=== PATIENT | male | born 1935 | race Caucasian/White ===

== ENCOUNTER 2021-06-17 21:52 | Inpatient (IN) | payer MEDICARE ==
[~2021-06-17 21:52] MED LIST: Iopamidol-370 76% 500 ML 1 ML ONE
[2021-06-17] MEDS ORDERED: Ondansetron PF 4 MG/2 ML Vial ONE (22:19)
[2021-06-17 22:36] LABS: #Lymphocytes 0.5 thou/uL (1.20-3.40); #Monocytes 0.6 thou/uL (0.11-0.59); #Neutrophils 13.6 thou/uL (1.40-6.50); %Basophils 0.2 % (0.0-1.0); %Eosinophils 0.1 % (0.0-10.0); %Lymphocytes 3.3 % (21.0-51.0); %Monocytes 3.8 % (0.0-10.0); %Neutrophils 92.7 % (42.0-75.0); Hemoglobin 14.3 g/dL (14.0-18.0); Mean Corpuscular HGB CONC 33.6 g/dL (32.0-36.0); Mean Corpuscular Hemoglobin 32.3 pg (27.0-31.0); Mean Platelet Volume 7.5 fL (7.4-10.4); Platelet Count 184 thou/uL (130-400); RBC Distribution Width 12.8 % (11.5-14.5); Red Blood Cell (RBC) Count 4.43 mill/uL (4.70-6.10); White Blood Cell (WBC) Count 14.7 thou/uL (4.8-10.8)
[2021-06-17 22:58] LABS: ALT (SGPT) 416 U/L (8-55); AST (SGOT) 848 U/L (5-34); Albumin 3.9 g/dL (3.4-4.8); Alkaline Phosphatase 172 U/L (40-110); Anion Gap 21 mmol/L (10-20); BUN (Urea Nitrogen) 17 mg/dL (8.4-25.7); Bilirubin, Total 3.3 mg/dL (0.2-1.2); CK (CPK) 225 U/L (30-200); Calc. Creatinine Clearance 0 mL/min (70-130); Calcium 9.6 mg/dL (7.8-10.44); Carbon Dioxide 19 mmol/L (23-31); Chloride 102 mmol/L (98-107); Globulin 3.7 g/dL (2.4-3.5); Glucose 255 mg/dL (83-110); Lipase 74 U/L (8-78); Magnesium 1.3 mg/dL (1.6-2.6); Potassium 4.7 mmol/L (3.5-5.1); Protein, Total 7.6 g/dL (5.8-8.1); Sodium 137 mmol/L (136-145)
[2021-06-18] MEDS ORDERED: Magnesium 2 GM/50 ML BAG (IN WATER) ONE ×2 (00:07→07:17)
[2021-06-18] MEDS ORDERED: Ondansetron PF 4 MG/2 ML Vial ONE (00:07)
[2021-06-18] MEDS ORDERED: Vancomycin 1 GM/200 ML BAG ONE (00:07)
[2021-06-18] MEDS ORDERED: Cefepime 2 GM VIAL ONE (00:07)
[2021-06-18 01:40] LABS: Lactic Acid 1.7 mmol/L (0.5-2.2)
[2021-06-18] MEDS ORDERED: Acetaminophen 650 MG Suppository PR PRN (02:53)
[2021-06-18] MEDS ORDERED: Ondansetron ODT 4 MG TAB PO PRN (02:53)
[2021-06-18] MEDS ORDERED: Ondansetron PF 4 MG/2 ML Vial IVP PRN (02:53)
[2021-06-18] MEDS ORDERED: Acetaminophen 325 MG TAB PO PRN (02:53)
[2021-06-18] MEDS ORDERED: Piperacillin/Tazobactam 3.375 GM VIAL ONE ×2 (02:57→12:11)
[2021-06-18] MEDS ORDERED: Electrolyte Replacement Protocol 1 EACH FS SCH (03:00)
[2021-06-18 03:09] VITALS: BMI 26.6
[2021-06-18] MEDS ORDERED: Dextrose 50% Abboject 50 ML SYRINGE SLOW IVP PRN (04:13)
[2021-06-18] MEDS ORDERED: Dextrose 5% in Water 1,000 ML IV PRN (04:13)
[2021-06-18] MEDS ORDERED: HumaLOG 300 UNITS/3 ML VIAL SC PRN (04:13)
[2021-06-18] MEDS ORDERED: Enoxaparin Sodium 80 MG/0.8 ML SYRINGE SC SCH ×2 (04:30→21:00)
[2021-06-18] MEDS: Sodium Chloride 0.9% 1,000 ML IV SCH ×3 (04:37→17:17)
[2021-06-18] MEDS ORDERED: Enoxaparin Sodium 80 MG/0.8 ML SYRINGE ONE (04:39)
[2021-06-18] MEDS ORDERED: Doxycycline 100 MG in Sodium Chloride 0.9% 100 ML IVPB SCH (06:00)
[2021-06-18 06:45] LABS: Anion Gap 14 mmol/L (10-20); BUN (Urea Nitrogen) 19 mg/dL (8.4-25.7); Calc. Creatinine Clearance 36 mL/min (70-130); Calcium 8.7 mg/dL (7.8-10.44); Carbon Dioxide 20 mmol/L (23-31); Chloride 104 mmol/L (98-107); Glucose 281 mg/dL (83-110); Magnesium 1.7 mg/dL (1.6-2.6); Potassium 4.3 mmol/L (3.5-5.1); Sodium 134 mmol/L (136-145); Troponin I 4.855 ng/mL (< 0.028)
[2021-06-18 06:47] LABS: Band 42 % (5-11); Hemoglobin 12.6 g/dL (14.0-18.0); Lymphocytes 3 % (21-51); MDiff Complete? YES; Mean Corpuscular HGB CONC 34.1 g/dL (32.0-36.0); Mean Corpuscular Hemoglobin 33.1 pg (27.0-31.0); Mean Corpuscular Volume 97.2 fL (78.0-98.0); Mean Platelet Volume 7.5 fL (7.4-10.4); Monocytes 2 % (0-10); Neutrophil 53 % (42-75); Platelet Count 163 thou/uL (130-400); RBC Distribution Width 12.9 % (11.5-14.5); Red Blood Cell (RBC) Count 3.81 mill/uL (4.70-6.10); White Blood Cell (WBC) Count 16.7 thou/uL (4.8-10.8)
[2021-06-18] MEDS ORDERED: Magnesium 2 GM/50 ML(in water) 2 GM in Premix Bag 1 BAG IVPB SCH (07:15)
[2021-06-18 07:56] LABS: ALT (SGPT) 601 U/L (8-55); AST (SGOT) 1083 U/L (5-34); Albumin 3.3 g/dL (3.4-4.8); Alkaline Phosphatase 142 U/L (40-110); Bilirubin, Direct 2.2 mg/dL (0.1-0.3); Bilirubin, Total 3.9 mg/dL (0.2-1.2); Protein, Total 6.4 g/dL (5.8-8.1)
[2021-06-18] MEDS ORDERED: Enoxaparin Sodium 40 MG/0.4 ML SYRINGE SC SCH (09:00)
[2021-06-18 10:26] LABS: Bacteria/HPF None Seen HPF (None Seen); Bilirubin Negative (Negative); Blood, Urine 1+ (Negative); Clarity Clear (Clear); Glucose, Urine (Dipstick) 50 mg/dL (Negative); Ketone, Urine 20 mg/dL (Negative); Leukocyte Negative Leu/uL (Negative); Nitrite Negative (Negative); Protein, Urine (Dipstick) 200 mg/dL (Neg-Trace); RBC/HPF 0-3 HPF (0-3); Specific Gravity, Urine 1.026 (1.002-1.036); Squamous Epithelial None Seen HPF (0-3); Urobilinogen Normal mg/dL (Less than 2); WBC/HPF 0-3 HPF (0-3); pH, Urine 5.5 (5.0-9.0)
[2021-06-18 11:15] LABS: Amphetamine Not Detected (NotDetected); Barbiturates Screen Not Detected (NotDetected); Benzodiazepine Screen Not Detected (NotDetected); Cocaine Metabolite Screen Not Detected (NotDetected); Methadone Not Detected (NotDetected); Methamphetamine Not Detected (NotDetected); Opiate Screen Not Detected (NotDetected); Oxycodone Screen Not Detected (NotDetected); Phencyclidine (PCP) Not Detected (NotDetected); THC/Cannabinoid Screen Not Detected (NotDetected); Tricyclic Screen Not Detected (NotDetected)
[2021-06-18 11:23] LABS: INR-International Normal Ratio 1.2; Prothrombin Time 15.7 sec (12.0-14.7)
[2021-06-18 11:24] LABS: PTT 41.5 sec (22.9-36.1)
[2021-06-18 11:30] LABS: Acetaminophen Less than 6.0 mcg/mL (10.0-30.0); Salicylate Less than 8.0 mg/dL (15.0-30.0)
[2021-06-18 11:51] LABS: HBCM Index 0.06 S/CO (0-0.79); HBSAg Index 0.27 S/CO (0-0.99); Hep A IgM AB Non-Reactive (NonReactive); Hep A IgM S/CO 0.48 S/CO (0-0.79); Hep B Surf Ag Non-Reactive S/CO (NonReactive); Hep C IgG Ab Non-Reactive (NonReactive); Hep C Index 0.13 S/CO (0-0.79); Hepatitis B Core IgM Abs Non-Reactive (NonReactive)
[2021-06-18] MEDS: Piperacillin/Tazobactam 3.375 GM in Sodium Chloride 0.9% 100 ML IVPB SCH ×2 (12:25→20:57)
[2021-06-18 13:46] LABS: SARS-CoV-2 PCR by NAA Not Detected (NotDetected)
[2021-06-18] MEDS: Doxycycline 100 MG in Sodium Chloride 0.9% 100 ML IVPB SCH (17:16)
[2021-06-19] MEDS: Piperacillin/Tazobactam 3.375 GM in Sodium Chloride 0.9% 100 ML IVPB SCH ×3 (04:34→20:44)
[2021-06-19 04:42] LABS: #Eosinphils 0.1 thou/uL (0.0-0.7); #Lymphocytes 0.3 thou/uL (1.20-3.40); #Monocytes 0.4 thou/uL (0.11-0.59); #Neutrophils 6.5 thou/uL (1.40-6.50); %Basophils 0.7 % (0.0-1.0); %Eosinophils 0.9 % (0.0-10.0); %Lymphocytes 4.6 % (21.0-51.0); %Monocytes 5.3 % (0.0-10.0); %Neutrophils 88.5 % (42.0-75.0); Hemoglobin 11.5 g/dL (14.0-18.0); Mean Corpuscular HGB CONC 33.3 g/dL (32.0-36.0); Mean Corpuscular Hemoglobin 32.7 pg (27.0-31.0); Mean Corpuscular Volume 98.2 fL (78.0-98.0); Mean Platelet Volume 7.6 fL (7.4-10.4); Platelet Count 130 thou/uL (130-400); RBC Distribution Width 13.3 % (11.5-14.5); Red Blood Cell (RBC) Count 3.51 mill/uL (4.70-6.10); White Blood Cell (WBC) Count 7.4 thou/uL (4.8-10.8)
[2021-06-19 05:08] LABS: ALT (SGPT) 498 U/L (8-55); AST (SGOT) 446 U/L (5-34); Albumin 3.2 g/dL (3.4-4.8); Alkaline Phosphatase 127 U/L (40-110); Anion Gap 11 mmol/L (10-20); BUN (Urea Nitrogen) 17 mg/dL (8.4-25.7); Bilirubin, Total 4.3 mg/dL (0.2-1.2); Calc. Creatinine Clearance 38 mL/min (70-130); Calcium 8.5 mg/dL (7.8-10.44); Carbon Dioxide 23 mmol/L (23-31); Chloride 106 mmol/L (98-107); Globulin 3.2 g/dL (2.4-3.5); Glucose 179 mg/dL (83-110); Potassium 4.2 mmol/L (3.5-5.1); Protein, Total 6.4 g/dL (5.8-8.1); Sodium 136 mmol/L (136-145)
[2021-06-19 05:10] LABS: INR-International Normal Ratio 1.1; Prothrombin Time 14.3 sec (12.0-14.7)
[2021-06-19 05:11] LABS: PTT 35.1 sec (22.9-36.1)
[2021-06-19] MEDS: Sodium Chloride 0.9% 1,000 ML IV SCH ×2 (06:32→13:15)
[2021-06-19] MEDS: Doxycycline 100 MG in Sodium Chloride 0.9% 100 ML IVPB SCH ×2 (06:32→20:34)
[2021-06-19] MEDS ORDERED: FLU VACC QS2021-22(65YR UP)/PF 240 MCG/0.7 ML SYRINGE IM ONE (09:00)
[2021-06-19] MEDS: HumaLOG 300 UNITS/3 ML VIAL SC PRN (13:25)
[2021-06-19] MEDS ORDERED: hydrALAZINE 20 MG/ML VIAL SLOW IVP PRN (23:50)
[2021-06-20] MEDS: Piperacillin/Tazobactam 3.375 GM in Sodium Chloride 0.9% 100 ML IVPB SCH (05:25)
[2021-06-20] MEDS: Sodium Chloride 0.9% 1,000 ML IV SCH ×2 (05:26→06:14)
[2021-06-20] MEDS: Doxycycline 100 MG in Sodium Chloride 0.9% 100 ML IVPB SCH (05:27)
[2021-06-20] MEDS: HumaLOG 300 UNITS/3 ML VIAL SC PRN ×3 (05:37→18:43)
[2021-06-20 05:38] LABS: #Eosinphils 0.1 thou/uL (0.0-0.7); #Lymphocytes 0.5 thou/uL (1.20-3.40); #Monocytes 0.3 thou/uL (0.11-0.59); #Neutrophils 5.8 thou/uL (1.40-6.50); %Basophils 0.3 % (0.0-1.0); %Eosinophils 0.8 % (0.0-10.0); %Lymphocytes 7.5 % (21.0-51.0); %Monocytes 4.5 % (0.0-10.0); %Neutrophils 86.9 % (42.0-75.0); Mean Corpuscular HGB CONC 33.8 g/dL (32.0-36.0); Mean Corpuscular Hemoglobin 32.7 pg (27.0-31.0); Mean Corpuscular Volume 96.8 fL (78.0-98.0); Mean Platelet Volume 8.2 fL (7.4-10.4); Platelet Count 112 thou/uL (130-400); RBC Distribution Width 13.1 % (11.5-14.5); Red Blood Cell (RBC) Count 3.66 mill/uL (4.70-6.10); White Blood Cell (WBC) Count 6.7 thou/uL (4.8-10.8)
[2021-06-20 05:45] LABS: Prothrombin Time 13.5 sec (12.0-14.7)
[2021-06-20 05:46] LABS: PTT 31.5 sec (22.9-36.1)
[2021-06-20] MEDS ORDERED: cefTRIAXone\\ROCEPHIN 1 GM in Sodium Chloride 0.9% 100 ML IVPB SCH (09:00)
[2021-06-20] MEDS ORDERED: Sodium Chloride 0.9% 1,000 ML IV SCH (09:01)
[2021-06-20] MEDS ORDERED: Fleet Enema 133 ML BOT PR SCH (09:15)
[2021-06-20] MEDS: Metoprolol Tartrate 100 MG TAB PO SCH (10:03)
[2021-06-20] MEDS: Alogliptin 6.25 MG TAB PO SCH (10:10)
[2021-06-20] MEDS: Tamsulosin HCl 0.4 MG CAP PO SCH (10:10)
[2021-06-20] MEDS: Amlodipine 5 MG TAB PO SCH (10:10)
[2021-06-20] MEDS: Finasteride 5 MG TAB PO SCH (10:11)
[2021-06-20 14:39] LABS: Albumin 3.2 g/dL (3.4-4.8)
[2021-06-20 14:40] LABS: Chloride 104 mmol/L (98-107); Potassium 4.2 mmol/L (3.5-5.1); Sodium 133 mmol/L (136-145)
[2021-06-20 14:41] LABS: Calcium 8.7 mg/dL (7.8-10.44); Glucose 209 mg/dL (83-110)
[2021-06-20 14:42] LABS: Globulin 3.4 g/dL (2.4-3.5); Protein, Total 6.6 g/dL (5.8-8.1)
[2021-06-20 14:43] LABS: Anion Gap 15 mmol/L (10-20); Bilirubin, Total 4.1 mg/dL (0.2-1.2); Carbon Dioxide 18 mmol/L (23-31)
[2021-06-20 14:44] LABS: Alkaline Phosphatase 144 U/L (40-110)
[2021-06-20 14:45] LABS: Calc. Creatinine Clearance 60 mL/min (70-130)
[2021-06-20 14:46] LABS: BUN (Urea Nitrogen) 12 mg/dL (8.4-25.7)
[2021-06-20 14:47] LABS: ALT (SGPT) 446 U/L (8-55); AST (SGOT) 354 U/L (5-34)
[2021-06-20] MEDS: Atorvastatin Calcium 10 MG TAB PO SCH (21:30)
[2021-06-21] MEDS: HumaLOG 300 UNITS/3 ML VIAL SC PRN ×2 (06:08→12:07)
[2021-06-21 07:02] LABS: Hemoglobin 11.9 g/dL (14.0-18.0); Mean Corpuscular HGB CONC 32.7 g/dL (32.0-36.0); Mean Corpuscular Hemoglobin 32.3 pg (27.0-31.0); Mean Corpuscular Volume 98.9 fL (78.0-98.0); Mean Platelet Volume 9.3 fL (7.4-10.4); Platelet Count 138 thou/uL (130-400); RBC Distribution Width 13.3 % (11.5-14.5); Red Blood Cell (RBC) Count 3.67 mill/uL (4.70-6.10); White Blood Cell (WBC) Count 5.3 thou/uL (4.8-10.8)
[2021-06-21 07:14] LABS: PTT 32.9 sec (22.9-36.1); Prothrombin Time 13.7 sec (12.0-14.7)
[2021-06-21 07:17] LABS: ALT (SGPT) 395 U/L (8-55); ALT (SGPT) 404 U/L (8-55); AST (SGOT) 283 U/L (5-34); AST (SGOT) 288 U/L (5-34); Albumin 3.1 g/dL (3.4-4.8); Albumin 3.2 g/dL (3.4-4.8); Alkaline Phosphatase 155 U/L (40-110); Alkaline Phosphatase 156 U/L (40-110); Anion Gap 15 mmol/L (10-20); BUN (Urea Nitrogen) 14 mg/dL (8.4-25.7); Bilirubin, Direct 2.4 mg/dL (0.1-0.3); Bilirubin, Total 3.5 mg/dL (0.2-1.2); Calc. Creatinine Clearance 59 mL/min (70-130); Calcium 8.8 mg/dL (7.8-10.44); Carbon Dioxide 21 mmol/L (23-31); Chloride 102 mmol/L (98-107); Globulin 3.4 g/dL (2.4-3.5); Glucose 182 mg/dL (83-110); Potassium 4.1 mmol/L (3.5-5.1); Protein, Total 6.5 g/dL (5.8-8.1); Protein, Total 6.6 g/dL (5.8-8.1); Sodium 134 mmol/L (136-145)
[2021-06-21 08:35] LABS: Band 26 % (5-11); Eosinophils 2 % (0-10); Lymphocytes 9 % (21-51); MDiff Complete? YES; Monocytes 10 % (0-10); Neutrophil 53 % (42-75); RBC Morphology Normal
[2021-06-21] MEDS: Amlodipine 5 MG TAB PO SCH (09:00)
[2021-06-21] MEDS: Alogliptin 6.25 MG TAB PO SCH (09:00)
[2021-06-21] MEDS: Metoprolol Tartrate 100 MG TAB PO SCH (09:00)
[2021-06-21] MEDS: Finasteride 5 MG TAB PO SCH (09:00)
[2021-06-21] MEDS: Tamsulosin HCl 0.4 MG CAP PO SCH (09:00)
[2021-06-21] MEDS: Atorvastatin Calcium 10 MG TAB PO SCH (21:57)
[2021-06-22 04:39] LABS: #Eosinphils 0.2 thou/uL (0.0-0.7); #Lymphocytes 1.1 thou/uL (1.20-3.40); #Monocytes 0.7 thou/uL (0.11-0.59); #Neutrophils 3.6 thou/uL (1.40-6.50); %Basophils 0.5 % (0.0-1.0); %Eosinophils 3.4 % (0.0-10.0); %Lymphocytes 19.6 % (21.0-51.0); %Monocytes 11.7 % (0.0-10.0); %Neutrophils 64.7 % (42.0-75.0); Hemoglobin 13.1 g/dL (14.0-18.0); Mean Corpuscular HGB CONC 33.5 g/dL (32.0-36.0); Mean Corpuscular Hemoglobin 32.8 pg (27.0-31.0); Platelet Count 142 thou/uL (130-400); RBC Distribution Width 13.4 % (11.5-14.5); Red Blood Cell (RBC) Count 3.98 mill/uL (4.70-6.10); White Blood Cell (WBC) Count 5.6 thou/uL (4.8-10.8)
[2021-06-22] MEDS ORDERED: Loratadine 10 MG TAB PO SCH (04:45)
[2021-06-22 05:03] LABS: Anion Gap 14 mmol/L (10-20); BUN (Urea Nitrogen) 15 mg/dL (8.4-25.7); Calc. Creatinine Clearance 56 mL/min (70-130); Calcium 9.2 mg/dL (7.8-10.44); Carbon Dioxide 23 mmol/L (23-31); Chloride 102 mmol/L (98-107); Glucose 214 mg/dL (83-110); Potassium 3.7 mmol/L (3.5-5.1); Sodium 135 mmol/L (136-145)
[2021-06-22 05:04] LABS: ALT (SGPT) 376 U/L (8-55); AST (SGOT) 236 U/L (5-34); Albumin 3.3 g/dL (3.4-4.8); Alkaline Phosphatase 184 U/L (40-110); Bilirubin, Direct 2.1 mg/dL (0.1-0.3)
[2021-06-22] MEDS: HumaLOG 300 UNITS/3 ML VIAL SC PRN ×3 (06:30→18:17)
[2021-06-22] MEDS: Alogliptin 6.25 MG TAB PO SCH (07:50)
[2021-06-22] MEDS: Tamsulosin HCl 0.4 MG CAP PO SCH (07:50)
[2021-06-22] MEDS: Metoprolol Tartrate 100 MG TAB PO SCH (07:50)
[2021-06-22] MEDS: Finasteride 5 MG TAB PO SCH (07:50)
[2021-06-22] MEDS: Amlodipine 5 MG TAB PO SCH (07:50)
[2021-06-22] MEDS: Atorvastatin Calcium 10 MG TAB PO SCH (21:26)
[2021-06-23] MEDS ORDERED: Loratadine 10 MG TAB PO PRN (00:08)
[2021-06-23] MEDS ORDERED: Calcium Carbonate 500 MG ChewTAB PO PRN (00:09)
[2021-06-23 05:38] LABS: ALT (SGPT) 314 U/L (8-55); AST (SGOT) 195 U/L (5-34); Alkaline Phosphatase 180 U/L (40-110); Bilirubin, Direct 1.7 mg/dL (0.1-0.3); Bilirubin, Total 2.6 mg/dL (0.2-1.2); Protein, Total 6.3 g/dL (5.8-8.1)
[2021-06-23] MEDS: HumaLOG 300 UNITS/3 ML VIAL SC PRN ×2 (05:52→11:23)
[2021-06-23] MEDS: Alogliptin 6.25 MG TAB PO SCH (09:33)
[2021-06-23] MEDS: Metoprolol Tartrate 100 MG TAB PO SCH (09:34)
[2021-06-23] MEDS: Tamsulosin HCl 0.4 MG CAP PO SCH (09:34)
[2021-06-23] MEDS: Amlodipine 5 MG TAB PO SCH (09:35)
[2021-06-23] MEDS: Finasteride 5 MG TAB PO SCH (09:35)
[2021-06-23 10:19] VITALS: TEMP 97.8
[2021-06-23 12:44] VITALS: BP 155/68
[2021-06-25 15:14] LABS: Alpha-1-Antitrypsin 174 mg/dL (101-187); Smooth Muscle Total ABS 9 Units (0-19)
[2021-06-27 14:55] LABS: ANA Symphony (Qualitative) Negative (Negative); ANA Symphony (Quantitative) 0.4 Ratio (< 0.7 Negative); EliA Vaculitis New Method **** NEW METHOD ****; Mitochondrial Ab 1.4 U/mL (<4 Negative)
== END 2021-06-23 14:54 | disposition home or self-care (01) | DRG 871 ==
LOC: ERS 21:52 → ERHOLD 06-18 00:18 → 2NO 06-18 14:44
PROVIDERS: ADMIT Student in an Organized Health Care Education/Training Program; ATTEND Internal Medicine
DX: A41.51 Sepsis due to Escherichia coli [E. coli] (principal); J18.9 Pneumonia, unspecified organism; I21.A1 Myocardial infarction type 2; K72.00 Acute and subacute hepatic failure without coma; N17.9 Acute kidney failure, unspecified; I42.9 Cardiomyopathy, unspecified; E87.1 Hypo-osmolality and hyponatremia; K55.8 Other vascular disorders of intestine; Z20.822 Contact with and (suspected) exposure to COVID-19; R65.20 Severe sepsis without septic shock; K52.89 Other specified noninfective gastroenteritis and colitis; E88.09 Other disorders of plasma-protein metabolism, not elsewhere classified; E83.42 Hypomagnesemia; K76.0 Fatty (change of) liver, not elsewhere classified; E11.9 Type 2 diabetes mellitus without complications; I10 Essential (primary) hypertension; I25.10 Atherosclerotic heart disease of native coronary artery without angina pectoris; R74.01 Elevation of levels of liver transaminase levels; E80.6 Other disorders of bilirubin metabolism; M06.9 Rheumatoid arthritis, unspecified; I08.1 Rheumatic disorders of both mitral and tricuspid valves; M19.90 Unspecified osteoarthritis, unspecified site; K21.9 Gastro-esophageal reflux disease without esophagitis; Z28.21 Immunization not carried out because of patient refusal; Z95.1 Presence of aortocoronary bypass graft; Z79.899 Other long term (current) drug therapy; Z79.84 Long term (current) use of oral hypoglycemic drugs; Z80.8 Family history of malignant neoplasm of other organs or systems
CPT/HCPCS: 36415; 36416; 71045; 74177; 76705; 76770; 80048; 80053; 80074; 80076; 80143; 80179; 80306; 81001; 82103; 82104; 82105; 82390; 82550; 82553; 82728; 83516; 83550; 83605; 83690; 83735; 84145; 84443; 84484; 85025; 85610; 85730; 86038; 86225; 87040; 87077; 87086; 87149; 87186; 93005; 93306; 96365; 96366; 96368; 96375; 80307; J0692; J0696; J1650; J1815; J2405; J2543; J3370; J3475; J3490; J7050; Q9967; U0003; U0005

== ENCOUNTER 2021-06-26 19:36 | Inpatient (IN) | payer MEDICARE, OTHER ==
[2021-06-26] MEDS ORDERED: Nitroglycerin 2% Ointment 1 INCH/1 GM Packet ONE (19:41)
[2021-06-26] MEDS ORDERED: Nitroglycerin 0.4 MG TAB 1 EACH ONE ×2 (19:41→19:42)
[2021-06-26 19:59] LABS: #Eosinphils 0.1 thou/uL (0.0-0.7); #Lymphocytes 0.9 thou/uL (1.20-3.40); #Monocytes 0.8 thou/uL (0.11-0.59); #Neutrophils 10.9 thou/uL (1.40-6.50); %Basophils 0.3 % (0.0-1.0); %Eosinophils 0.5 % (0.0-10.0); %Lymphocytes 6.9 % (21.0-51.0); %Monocytes 6.4 % (0.0-10.0); %Neutrophils 85.9 % (42.0-75.0); Hemoglobin 13.1 g/dL (14.0-18.0); Mean Corpuscular HGB CONC 33.5 g/dL (32.0-36.0); Mean Corpuscular Hemoglobin 32.7 pg (27.0-31.0); Mean Corpuscular Volume 97.6 fL (78.0-98.0); Mean Platelet Volume 7.2 fL (7.4-10.4); Platelet Count 245 thou/uL (130-400); RBC Distribution Width 14.4 % (11.5-14.5); Red Blood Cell (RBC) Count 4.01 mill/uL (4.70-6.10); White Blood Cell (WBC) Count 12.7 thou/uL (4.8-10.8)
[2021-06-26 20:11] LABS: PTT 28.8 sec (22.9-36.1)
[2021-06-26 20:15] LABS: ALT (SGPT) 414 U/L (8-55); AST (SGOT) 553 U/L (5-34); Albumin 3.4 g/dL (3.4-4.8); Alkaline Phosphatase 380 U/L (40-110); Anion Gap 17 mmol/L (10-20); BUN (Urea Nitrogen) 10 mg/dL (8.4-25.7); Bilirubin, Total 7.4 mg/dL (0.2-1.2); Calc. Creatinine Clearance 0 mL/min (70-130); Calcium 9.4 mg/dL (7.8-10.44); Carbon Dioxide 25 mmol/L (23-31); Chloride 98 mmol/L (98-107); Glucose 226 mg/dL (83-110); Potassium 3.7 mmol/L (3.5-5.1); Protein, Total 7.4 g/dL (5.8-8.1); Sodium 136 mmol/L (136-145)
[2021-06-26 20:35] LABS: CKMB 2.7 ng/mL (0-6.6)
[2021-06-26] MEDS ORDERED: Morphine 4 MG/ML VIAL ONE (21:40)
[2021-06-26] MEDS ORDERED: Ondansetron PF 4 MG/2 ML Vial ONE (21:47)
[2021-06-26 21:59] LABS: Acetaminophen Less than 6.0 mcg/mL (10.0-30.0); Alcohol Less than 10 mg/dL (Less than 10); Salicylate Less than 8.0 mg/dL (15.0-30.0)
[2021-06-26 23:49] LABS: Troponin I 0.185 ng/mL (< 0.028)
[2021-06-27] MEDS ORDERED: Ondansetron PF 4 MG/2 ML Vial IVP PRN (00:59)
[2021-06-27] MEDS ORDERED: Acetaminophen 325 MG TAB PO PRN (00:59)
[2021-06-27] MEDS: Morphine 4 MG/ML VIAL SLOW IVP SCH ×3 (01:33→10:32)
[2021-06-27] MEDS: Cefepime 1 GM in Sodium Chloride 0.9% 100 ML IVPB SCH ×2 (01:34→14:22)
[2021-06-27] MEDS: Sodium Chloride 0.9% 1,000 ML IV SCH ×2 (01:35→21:13)
[2021-06-27 02:02] LABS: Troponin I 0.205 ng/mL (< 0.028)
[2021-06-27 04:06] LABS: #Lymphocytes 0.9 thou/uL (1.20-3.40); #Monocytes 0.7 thou/uL (0.11-0.59); #Neutrophils 10.3 thou/uL (1.40-6.50); %Basophils 0.3 % (0.0-1.0); %Eosinophils 0.2 % (0.0-10.0); %Lymphocytes 7.6 % (21.0-51.0); %Monocytes 6.1 % (0.0-10.0); %Neutrophils 85.8 % (42.0-75.0); Hemoglobin 11.5 g/dL (14.0-18.0); Mean Corpuscular Volume 97.1 fL (78.0-98.0); Mean Platelet Volume 7.5 fL (7.4-10.4); Platelet Count 238 thou/uL (130-400); RBC Distribution Width 14.3 % (11.5-14.5)
[2021-06-27 04:31] LABS: Anion Gap 13 mmol/L (10-20); BUN (Urea Nitrogen) 12 mg/dL (8.4-25.7); Calc. Creatinine Clearance 54 mL/min (70-130); Carbon Dioxide 27 mmol/L (23-31); Chloride 100 mmol/L (98-107); Glucose 240 mg/dL (83-110); Potassium 4.6 mmol/L (3.5-5.1); Sodium 135 mmol/L (136-145)
[2021-06-27] MEDS ORDERED: Morphine 2 MG/ML VIAL SLOW IVP SCH (07:45)
[2021-06-27] MEDS ORDERED: Morphine 4 MG/ML VIAL SLOW IVP SCH (08:00)
[2021-06-27] MEDS: Enoxaparin Sodium 30 MG/0.3 ML SYRINGE SC SCH (08:16)
[2021-06-27] MEDS ORDERED: FLU VACC QS2021-22(65YR UP)/PF 240 MCG/0.7 ML SYRINGE IM ONE (09:00)
[2021-06-27] MEDS ORDERED: Morphine 2 MG/ML VIAL SLOW IVP PRN (12:06)
[2021-06-27 12:08] LABS: SARS-CoV-2 PCR by NAA Not Detected (NotDetected)
[2021-06-27] MEDS ORDERED: Morphine 4 MG/ML VIAL SLOW IVP PRN (12:09)
[2021-06-27] MEDS ORDERED: Senokot S 8.6-50 MG TAB PO PRN ×2 (12:10→12:20)
[2021-06-27] MEDS ORDERED: Dextrose 50% Abboject 50 ML SYRINGE SLOW IVP PRN (12:11)
[2021-06-27] MEDS ORDERED: Dextrose 5% in Water 1,000 ML IV PRN (12:11)
[2021-06-27] MEDS: diphenhydrAMINE 25 MG CAP PO PRN (16:28)
[2021-06-27] MEDS: HumaLOG 300 UNITS/3 ML VIAL SC PRN ×2 (16:28→21:02)
[2021-06-27] MEDS ORDERED: Metoprolol Tartrate 100 MG TAB PO SCH (21:00)
[2021-06-27] MEDS: Metoprolol Tartrate 50 MG TAB PO SCH (21:01)
[2021-06-28] MEDS: diphenhydrAMINE 25 MG CAP PO PRN (01:52)
[2021-06-28] MEDS: Cefepime 1 GM in Sodium Chloride 0.9% 100 ML IVPB SCH ×2 (01:53→14:49)
[2021-06-28 02:31] LABS: Bacteria/HPF None Seen HPF (None Seen); Bilirubin 3+ (Negative); Blood, Urine 1+ (Negative); Clarity Clear (Clear); Glucose, Urine (Dipstick) 70 mg/dL (Negative); Ketone, Urine Negative (Negative); Leukocyte Negative Leu/uL (Negative); Nitrite Negative (Negative); Protein, Urine (Dipstick) 300 mg/dL (Neg-Trace); RBC/HPF 0-3 HPF (0-3); Specific Gravity, Urine 1.037 (1.002-1.036); Squamous Epithelial None Seen HPF (0-3); WBC/HPF 0-3 HPF (0-3)
[2021-06-28 02:33] LABS: Urine Culture Reflex No No
[2021-06-28 04:40] LABS: #Eosinphils 0.1 thou/uL (0.0-0.7); #Lymphocytes 0.8 thou/uL (1.20-3.40); #Monocytes 0.6 thou/uL (0.11-0.59); #Neutrophils 9.1 thou/uL (1.40-6.50); %Basophils 0.5 % (0.0-1.0); %Lymphocytes 7.8 % (21.0-51.0); %Monocytes 5.7 % (0.0-10.0); %Neutrophils 85.1 % (42.0-75.0); Hemoglobin 10.6 g/dL (14.0-18.0); Mean Corpuscular HGB CONC 34.4 g/dL (32.0-36.0); Mean Corpuscular Hemoglobin 33.7 pg (27.0-31.0); Mean Corpuscular Volume 97.9 fL (78.0-98.0); Mean Platelet Volume 7.6 fL (7.4-10.4); Platelet Count 203 thou/uL (130-400); RBC Distribution Width 14.4 % (11.5-14.5); Red Blood Cell (RBC) Count 3.15 mill/uL (4.70-6.10); White Blood Cell (WBC) Count 10.7 thou/uL (4.8-10.8)
[2021-06-28 05:10] LABS: Anion Gap 11 mmol/L (10-20); BUN (Urea Nitrogen) 17 mg/dL (8.4-25.7); Calc. Creatinine Clearance 50 mL/min (70-130); Calcium 8.4 mg/dL (7.8-10.44); Carbon Dioxide 26 mmol/L (23-31); Chloride 99 mmol/L (98-107); Glucose 233 mg/dL (83-110); Potassium 3.8 mmol/L (3.5-5.1); Sodium 132 mmol/L (136-145)
[2021-06-28] MEDS: HumaLOG 300 UNITS/3 ML VIAL SC PRN ×3 (05:51→21:43)
[2021-06-28] MEDS ORDERED: hydrOXYzine 25 MG TAB PO PRN (08:29)
[2021-06-28] MEDS ORDERED: hydrOXYzine 25 MG TAB PO SCH (08:30)
[2021-06-28] MEDS: Tamsulosin HCl 0.4 MG CAP PO SCH (08:42)
[2021-06-28] MEDS: Amlodipine 5 MG TAB PO SCH (08:42)
[2021-06-28] MEDS: Enoxaparin Sodium 30 MG/0.3 ML SYRINGE SC SCH (08:42)
[2021-06-28] MEDS: Metoprolol Tartrate 50 MG TAB PO SCH ×2 (08:42→21:16)
[2021-06-28] MEDS: Finasteride 5 MG TAB PO SCH (08:42)
[2021-06-28] MEDS ORDERED: Atorvastatin Calcium 20 MG TAB PO SCH (09:00)
[2021-06-28] MEDS ORDERED: Non-Formulary Item 1 EACH (Omeprazole Magnesium [Omeprazole Magnesium] 20 MG Capsule.Dr) PO SCH (09:00)
[2021-06-28] MEDS ORDERED: Atorvastatin Calcium 10 MG TAB PO SCH (09:00)
[2021-06-28] MEDS: Sodium Chloride 0.9% 1,000 ML IV SCH (21:16)
[2021-06-28] MEDS ORDERED: Calcium Carbonate 500 MG ChewTAB PO SCH (22:45)
[2021-06-29] MEDS: Cefepime 1 GM in Sodium Chloride 0.9% 100 ML IVPB SCH ×2 (02:10→14:16)
[2021-06-29 05:07] LABS: #Eosinphils 0.2 thou/uL (0.0-0.7); #Lymphocytes 1.5 thou/uL (1.20-3.40); #Monocytes 0.7 thou/uL (0.11-0.59); %Basophils 0.5 % (0.0-1.0); %Eosinophils 1.8 % (0.0-10.0); %Lymphocytes 15.8 % (21.0-51.0); %Monocytes 7.9 % (0.0-10.0); Hemoglobin 11.6 g/dL (14.0-18.0); Mean Corpuscular HGB CONC 34.6 g/dL (32.0-36.0); Mean Corpuscular Hemoglobin 33.7 pg (27.0-31.0); Mean Corpuscular Volume 97.3 fL (78.0-98.0); Mean Platelet Volume 8.2 fL (7.4-10.4); Platelet Count 229 thou/uL (130-400); RBC Distribution Width 14.6 % (11.5-14.5); Red Blood Cell (RBC) Count 3.44 mill/uL (4.70-6.10); White Blood Cell (WBC) Count 9.5 thou/uL (4.8-10.8)
[2021-06-29 05:17] LABS: Prothrombin Time 13.3 sec (12.0-14.7)
[2021-06-29 05:32] LABS: ALT (SGPT) 456 U/L (8-55); AST (SGOT) 720 U/L (5-34); Albumin 2.7 g/dL (3.4-4.8); Alkaline Phosphatase 435 U/L (40-110); Bilirubin, Direct 5.6 mg/dL (0.1-0.3); Bilirubin, Total 9.2 mg/dL (0.2-1.2); Protein, Total 6.9 g/dL (5.8-8.1)
[2021-06-29 05:33] LABS: ALT (SGPT) 457 U/L (8-55); AST (SGOT) 715 U/L (5-34); Albumin 2.9 g/dL (3.4-4.8); Alkaline Phosphatase 441 U/L (40-110); Anion Gap 14 mmol/L (10-20); BUN (Urea Nitrogen) 16 mg/dL (8.4-25.7); Bilirubin, Total 9.6 mg/dL (0.2-1.2); Calc. Creatinine Clearance 59 mL/min (70-130); Calcium 8.9 mg/dL (7.8-10.44); Carbon Dioxide 23 mmol/L (23-31); Chloride 101 mmol/L (98-107); Globulin 3.6 g/dL (2.4-3.5); Glucose 187 mg/dL (83-110); Potassium 3.7 mmol/L (3.5-5.1); Protein, Total 6.5 g/dL (5.8-8.1); Sodium 134 mmol/L (136-145)
[2021-06-29] MEDS: HumaLOG 300 UNITS/3 ML VIAL SC PRN ×3 (06:06→17:36)
[2021-06-29] MEDS: Tamsulosin HCl 0.4 MG CAP PO SCH (09:25)
[2021-06-29] MEDS: Metoprolol Tartrate 50 MG TAB PO SCH ×2 (09:25→21:41)
[2021-06-29] MEDS: Enoxaparin Sodium 30 MG/0.3 ML SYRINGE SC SCH (09:25)
[2021-06-29] MEDS: Amlodipine 5 MG TAB PO SCH (09:25)
[2021-06-29] MEDS: Finasteride 5 MG TAB PO SCH (09:25)
[2021-06-29] MEDS ORDERED: Bisacodyl 10 MG SUPP PR PRN (13:49)
[2021-06-29] MEDS ORDERED: Bisacodyl 10 MG SUPP PR SCH (14:00)
[2021-06-29] MEDS: Sodium Chloride 0.9% 1,000 ML IV SCH (14:17)
[2021-06-30] MEDS: Cefepime 1 GM in Sodium Chloride 0.9% 100 ML IVPB SCH ×2 (02:35→15:01)
[2021-06-30 04:29] LABS: ALT (SGPT) 408 U/L (8-55); AST (SGOT) 552 U/L (5-34); Albumin 2.6 g/dL (3.4-4.8); Alkaline Phosphatase 426 U/L (40-110); Anion Gap 12 mmol/L (10-20); BUN (Urea Nitrogen) 13 mg/dL (8.4-25.7); Calc. Creatinine Clearance 59 mL/min (70-130); Calcium 8.6 mg/dL (7.8-10.44); Carbon Dioxide 25 mmol/L (23-31); Chloride 101 mmol/L (98-107); Globulin 3.4 g/dL (2.4-3.5); Glucose 292 mg/dL (83-110); Potassium 4.1 mmol/L (3.5-5.1); Sodium 134 mmol/L (136-145)
[2021-06-30 04:59] LABS: #Eosinphils 0.2 thou/uL (0.0-0.7); #Lymphocytes 1.3 thou/uL (1.20-3.40); #Monocytes 0.6 thou/uL (0.11-0.59); #Neutrophils 5.9 thou/uL (1.40-6.50); %Basophils 0.1 % (0.0-1.0); %Eosinophils 1.9 % (0.0-10.0); %Lymphocytes 16.2 % (21.0-51.0); %Monocytes 7.9 % (0.0-10.0); %Neutrophils 73.9 % (42.0-75.0); Hemoglobin 10.9 g/dL (14.0-18.0); Mean Corpuscular HGB CONC 35.5 g/dL (32.0-36.0); Mean Corpuscular Hemoglobin 34.8 pg (27.0-31.0); Mean Corpuscular Volume 98.1 fL (78.0-98.0); Mean Platelet Volume 8.1 fL (7.4-10.4); Platelet Count 243 thou/uL (130-400); RBC Distribution Width 14.5 % (11.5-14.5); Red Blood Cell (RBC) Count 3.14 mill/uL (4.70-6.10)
[2021-06-30] MEDS: Amlodipine 5 MG TAB PO SCH (08:58)
[2021-06-30] MEDS: Enoxaparin Sodium 30 MG/0.3 ML SYRINGE SC SCH (08:59)
[2021-06-30] MEDS: Tamsulosin HCl 0.4 MG CAP PO SCH (08:59)
[2021-06-30] MEDS: Metoprolol Tartrate 50 MG TAB PO SCH ×2 (08:59→20:58)
[2021-06-30] MEDS: Finasteride 5 MG TAB PO SCH (08:59)
[2021-06-30] MEDS ORDERED: Fentanyl 100 MCG/2 ML VIAL ONE (12:14)
[2021-06-30] MEDS ORDERED: Rocuronium Bromide 10 MG/ML (10ML VIAL) ONE (12:45)
[2021-06-30] MEDS ORDERED: PHENYLEPHRINE-NS 100 MCG/ML 10 ML SYRINGE ONE (12:45)
[2021-06-30] MEDS ORDERED: Ondansetron PF 4 MG/2 ML Vial ONE (12:45)
[2021-06-30] MEDS ORDERED: Lidocaine 1% PF 5 ML VIAL ONE (12:45)
[2021-06-30] MEDS ORDERED: PROPOFOL 200 MG/20 ML VIAL ONE (12:45)
[2021-06-30] MEDS ORDERED: ePHEDrine 50 MG/ML VIAL ONE (12:45)
[2021-06-30] MEDS ORDERED: SUGAMMADEX SODIUM 200 MG/2 ML VIAL ONE (13:30)
[2021-06-30] MEDS: HumaLOG 300 UNITS/3 ML VIAL SC PRN ×2 (16:52→21:03)
[2021-06-30] MEDS: Sodium Chloride 0.9% 1,000 ML IV SCH (20:58)
[2021-07-01] MEDS: Cefepime 1 GM in Sodium Chloride 0.9% 100 ML IVPB SCH ×2 (03:29→14:35)
[2021-07-01] MEDS ORDERED: Ibuprofen 200 MG TAB PO SCH (08:00)
[2021-07-01] MEDS: Amlodipine 5 MG TAB PO SCH (08:48)
[2021-07-01] MEDS: Metoprolol Tartrate 50 MG TAB PO SCH ×2 (08:48→21:48)
[2021-07-01] MEDS: Tamsulosin HCl 0.4 MG CAP PO SCH (08:50)
[2021-07-01] MEDS: Finasteride 5 MG TAB PO SCH (08:50)
[2021-07-01] MEDS ORDERED: Enoxaparin Sodium 40 MG/0.4 ML SYRINGE SC SCH (09:00)
[2021-07-01 09:17] LABS: ALT (SGPT) 374 U/L (8-55); AST (SGOT) 369 U/L (5-34); Albumin 2.9 g/dL (3.4-4.8); Alkaline Phosphatase 465 U/L (40-110); Anion Gap 14 mmol/L (10-20); BUN (Urea Nitrogen) 15 mg/dL (8.4-25.7); Bilirubin, Total 10.9 mg/dL (0.2-1.2); Calc. Creatinine Clearance 45 mL/min (70-130); Calcium 9.2 mg/dL (7.8-10.44); Carbon Dioxide 24 mmol/L (23-31); Chloride 100 mmol/L (98-107); Globulin 3.9 g/dL (2.4-3.5); Glucose 338 mg/dL (83-110); Potassium 4.1 mmol/L (3.5-5.1); Protein, Total 6.8 g/dL (5.8-8.1); Sodium 134 mmol/L (136-145)
[2021-07-01] MEDS ORDERED: Insulin Regular 300 UNITS/3 ML VIAL ONE (12:50)
[2021-07-01] MEDS ORDERED: Indomethacin 50 MG SUPP ONE (12:54)
[2021-07-01] MEDS ORDERED: Iothalamate Meglumine 60% 50 ML VIAL FS ONE (12:55)
[2021-07-01] MEDS ORDERED: Fentanyl 100 MCG/2 ML VIAL ONE (13:32)
[2021-07-01] MEDS ORDERED: Albumin 5% 0 ML ONE (14:08)
[2021-07-01] MEDS ORDERED: Succinylcholine 200 MG/10 ml SYRINGE FS ONE (14:19)
[2021-07-01] MEDS ORDERED: Ondansetron PF 4 MG/2 ML Vial ONE (14:19)
[2021-07-01] MEDS ORDERED: ePHEDrine 50 MG/ML VIAL ONE (14:19)
[2021-07-01] MEDS ORDERED: Rocuronium Bromide 10 MG/ML (10ML VIAL) ONE (14:19)
[2021-07-01] MEDS ORDERED: Glycopyrrolate 0.2 MG/ML 5 ML SYRINGE ONE (14:19)
[2021-07-01] MEDS ORDERED: PHENYLEPHRINE-NS 100 MCG/ML 10 ML SYRINGE ONE (14:19)
[2021-07-01] MEDS ORDERED: Lidocaine 1% PF 5 ML VIAL ONE (14:19)
[2021-07-01 15:40] LABS: SARS-CoV-2 PCR by NAA Not Detected (NotDetected)
[2021-07-01] MEDS: Sodium Chloride 0.9% 1,000 ML IV SCH (16:23)
[2021-07-01] MEDS ORDERED: Meropenem 1 GM in Sodium Chloride 0.9% 100 ML IVPB SCH ×2 (17:15→17:30)
[2021-07-01] MEDS ORDERED: NPH, Human Insulin Isophane 300 UNIT/3 ML VIAL SC SCH (17:15)
[2021-07-01] MEDS: HumaLOG 300 UNITS/3 ML VIAL SC PRN (20:45)
[2021-07-02] MEDS: Meropenem 1 GM in Sodium Chloride 0.9% 100 ML IVPB SCH ×3 (02:15→20:14)
[2021-07-02 05:02] LABS: #Eosinphils 0.1 thou/uL (0.0-0.7); #Lymphocytes 1.9 thou/uL (1.20-3.40); #Neutrophils 13.3 thou/uL (1.40-6.50); %Basophils 0.2 % (0.0-1.0); %Eosinophils 0.3 % (0.0-10.0); %Lymphocytes 11.8 % (21.0-51.0); %Neutrophils 81.7 % (42.0-75.0); Hemoglobin 10.3 g/dL (14.0-18.0); Mean Corpuscular HGB CONC 33.2 g/dL (32.0-36.0); Mean Corpuscular Hemoglobin 33.9 pg (27.0-31.0); Mean Platelet Volume 8.8 fL (7.4-10.4); Platelet Count 261 thou/uL (130-400); RBC Distribution Width 15.4 % (11.5-14.5); Red Blood Cell (RBC) Count 3.05 mill/uL (4.70-6.10); White Blood Cell (WBC) Count 16.3 thou/uL (4.8-10.8)
[2021-07-02] MEDS: HumaLOG 300 UNITS/3 ML VIAL SC PRN ×2 (06:14→15:22)
[2021-07-02 06:46] LABS: Band 18 % (5-11); Eosinophils 2 % (0-10); Lymphocytes 12 % (21-51); MDiff Complete? YES; Neutrophil 68 % (42-75)
[2021-07-02] MEDS ORDERED: glipiZIDE 5 MG TAB PO SCH (07:45)
[2021-07-02] MEDS ORDERED: NPH, Human Insulin Isophane 300 UNIT/3 ML VIAL SC SCH (09:00)
[2021-07-02] MEDS: Amlodipine 5 MG TAB PO SCH (09:25)
[2021-07-02] MEDS: Saccharomyces boulardii 250 MG CAP PO SCH (09:25)
[2021-07-02] MEDS: Tamsulosin HCl 0.4 MG CAP PO SCH (09:25)
[2021-07-02] MEDS: Finasteride 5 MG TAB PO SCH (09:25)
[2021-07-02] MEDS: Metoprolol Tartrate 50 MG TAB PO SCH ×2 (09:25→20:15)
[2021-07-02] MEDS: NPH, Human Insulin Isophane 300 UNIT/3 ML VIAL SC SCH (09:30)
[2021-07-02 11:30] LABS: ALT (SGPT) 294 U/L (8-55); AST (SGOT) 278 U/L (5-34); Albumin 2.6 g/dL (3.4-4.8); Alkaline Phosphatase 368 U/L (40-110); Anion Gap 15 mmol/L (10-20); BUN (Urea Nitrogen) 27 mg/dL (8.4-25.7); Bilirubin, Total 10.8 mg/dL (0.2-1.2); Calc. Creatinine Clearance 40 mL/min (70-130); Calcium 8.6 mg/dL (7.8-10.44); Carbon Dioxide 17 mmol/L (23-31); Chloride 101 mmol/L (98-107); Globulin 4.1 g/dL (2.4-3.5); Glucose 257 mg/dL (83-110); Lipase 76 U/L (8-78); Phosphorus 2.9 mg/dL (2.3-4.7); Potassium 4.6 mmol/L (3.5-5.1); Protein, Total 6.7 g/dL (5.8-8.1); Sodium 128 mmol/L (136-145)
[2021-07-02 11:51] LABS: CRP (Inflammatory) 9.82 mg/dL (= or < 0.5)
[2021-07-02 11:52] LABS: Magnesium 1.7 mg/dL (1.6-2.6)
[2021-07-02] MEDS: Sodium Chloride 0.9% 1,000 ML IV SCH ×2 (18:38)
[2021-07-03] MEDS: Sodium Chloride 0.9% 1,000 ML IV SCH ×4 (01:51→15:20)
[2021-07-03 07:21] LABS: #Basophils 0.1 thou/uL (0.0-0.2); #Eosinphils 0.2 thou/uL (0.0-0.7); #Lymphocytes 2.3 thou/uL (1.20-3.40); #Monocytes 0.8 thou/uL (0.11-0.59); #Neutrophils 10.3 thou/uL (1.40-6.50); %Basophils 0.6 % (0.0-1.0); %Eosinophils 1.5 % (0.0-10.0); %Monocytes 6.1 % (0.0-10.0); %Neutrophils 74.8 % (42.0-75.0); Hemoglobin 10.5 g/dL (14.0-18.0); Mean Corpuscular HGB CONC 33.7 g/dL (32.0-36.0); Mean Corpuscular Hemoglobin 33.4 pg (27.0-31.0); Mean Platelet Volume 8.4 fL (7.4-10.4); Platelet Count 304 thou/uL (130-400); RBC Distribution Width 15.2 % (11.5-14.5); Red Blood Cell (RBC) Count 3.14 mill/uL (4.70-6.10); White Blood Cell (WBC) Count 13.8 thou/uL (4.8-10.8)
[2021-07-03 07:22] LABS: ALT (SGPT) 232 U/L (8-55); AST (SGOT) 161 U/L (5-34); Albumin 2.8 g/dL (3.4-4.8); Alkaline Phosphatase 387 U/L (40-110); Anion Gap 15 mmol/L (10-20); BUN (Urea Nitrogen) 23 mg/dL (8.4-25.7); Bilirubin, Total 7.1 mg/dL (0.2-1.2); Calc. Creatinine Clearance 46 mL/min (70-130); Calcium 8.6 mg/dL (7.8-10.44); Carbon Dioxide 18 mmol/L (23-31); Chloride 102 mmol/L (98-107); Globulin 3.6 g/dL (2.4-3.5); Glucose 113 mg/dL (83-110); Potassium 3.9 mmol/L (3.5-5.1); Protein, Total 6.4 g/dL (5.8-8.1); Sodium 131 mmol/L (136-145)
[2021-07-03] MEDS ORDERED: glipiZIDE 5 MG TAB PO SCH ×2 (07:30→16:30)
[2021-07-03] MEDS: Saccharomyces boulardii 250 MG CAP PO SCH (08:13)
[2021-07-03] MEDS: Tamsulosin HCl 0.4 MG CAP PO SCH (08:13)
[2021-07-03] MEDS: Metoprolol Tartrate 50 MG TAB PO SCH ×2 (08:14→20:18)
[2021-07-03] MEDS: Amlodipine 5 MG TAB PO SCH (08:15)
[2021-07-03] MEDS: Finasteride 5 MG TAB PO SCH (08:15)
[2021-07-03] MEDS: NPH, Human Insulin Isophane 300 UNIT/3 ML VIAL SC SCH (09:23)
[2021-07-03] MEDS: Meropenem 1 GM in Sodium Chloride 0.9% 100 ML IVPB SCH ×2 (10:39→20:17)
[2021-07-03] MEDS: HumaLOG 300 UNITS/3 ML VIAL SC PRN (11:45)
[2021-07-03] MEDS: Mineral Oil ENEMA PR PRN (16:07)
[2021-07-03] MEDS ORDERED: Sodium Chloride 0.9% 1,000 ML IV SCH (16:20)
[2021-07-03] MEDS: Heparin 5,000 UNITS/ML VIAL SC SCH (20:18)
[2021-07-04 07:22] LABS: ALT (SGPT) 177 U/L (8-55); AST (SGOT) 90 U/L (5-34); Albumin 2.6 g/dL (3.4-4.8); Alkaline Phosphatase 337 U/L (40-110); Anion Gap 13 mmol/L (10-20); BUN (Urea Nitrogen) 18 mg/dL (8.4-25.7); Bilirubin, Total 4.5 mg/dL (0.2-1.2); Calc. Creatinine Clearance 56 mL/min (70-130); Calcium 8.3 mg/dL (7.8-10.44); Carbon Dioxide 22 mmol/L (23-31); Chloride 105 mmol/L (98-107); Globulin 3.6 g/dL (2.4-3.5); Glucose 146 mg/dL (83-110); Magnesium 1.6 mg/dL (1.6-2.6); Potassium 3.9 mmol/L (3.5-5.1); Protein, Total 6.2 g/dL (5.8-8.1); Sodium 136 mmol/L (136-145)
[2021-07-04 07:23] LABS: #Basophils 0.1 thou/uL (0.0-0.2); #Eosinphils 0.2 thou/uL (0.0-0.7); #Lymphocytes 2.2 thou/uL (1.20-3.40); #Neutrophils 6.6 thou/uL (1.40-6.50); %Eosinophils 1.8 % (0.0-10.0); %Lymphocytes 22.2 % (21.0-51.0); %Monocytes 9.6 % (0.0-10.0); %Neutrophils 65.4 % (42.0-75.0); Hemoglobin 10.6 g/dL (14.0-18.0); Mean Corpuscular HGB CONC 32.4 g/dL (32.0-36.0); Mean Corpuscular Hemoglobin 32.7 pg (27.0-31.0); Mean Platelet Volume 8.1 fL (7.4-10.4); Platelet Count 342 thou/uL (130-400); RBC Distribution Width 15.8 % (11.5-14.5); Red Blood Cell (RBC) Count 3.25 mill/uL (4.70-6.10)
[2021-07-04] MEDS: Meropenem 1 GM in Sodium Chloride 0.9% 100 ML IVPB SCH ×2 (07:49→22:04)
[2021-07-04] MEDS: glipiZIDE 5 MG TAB PO SCH (07:49)
[2021-07-04] MEDS: Amlodipine 5 MG TAB PO SCH (07:51)
[2021-07-04] MEDS: Saccharomyces boulardii 250 MG CAP PO SCH (07:51)
[2021-07-04] MEDS: Heparin 5,000 UNITS/ML VIAL SC SCH (07:54)
[2021-07-04] MEDS: Tamsulosin HCl 0.4 MG CAP PO SCH (07:54)
[2021-07-04] MEDS: Finasteride 5 MG TAB PO SCH (07:54)
[2021-07-04] MEDS: Metoprolol Tartrate 50 MG TAB PO SCH ×2 (07:54→19:57)
[2021-07-04] MEDS ORDERED: Furosemide 20 MG/2 ML VIAL SLOW IVP SCH ×2 (08:00→14:00)
[2021-07-04] MEDS: HumaLOG 300 UNITS/3 ML VIAL SC PRN ×2 (12:12→16:45)
[2021-07-04 13:50] LABS: SARS-CoV-2 PCR by NAA Indeterminate (NotDetected)
[2021-07-04] MEDS: Albumin 25% 25 GM/100 ML BOT IVPB SCH ×2 (16:31→19:53)
[2021-07-04] MEDS: Mineral Oil ENEMA PR PRN (17:41)
[2021-07-04] MEDS: Enoxaparin Sodium 40 MG/0.4 ML SYRINGE SC SCH (19:54)
[2021-07-05] MEDS: Albumin 25% 25 GM/100 ML BOT IVPB SCH ×3 (02:00→14:41)
[2021-07-05 05:43] LABS: ALT (SGPT) 141 U/L (8-55); AST (SGOT) 81 U/L (5-34); Albumin 3.6 g/dL (3.4-4.8); Alkaline Phosphatase 296 U/L (40-110); Anion Gap 15 mmol/L (10-20); BUN (Urea Nitrogen) 15 mg/dL (8.4-25.7); Bilirubin, Total 5.3 mg/dL (0.2-1.2); Calc. Creatinine Clearance 53 mL/min (70-130); Calcium 9.4 mg/dL (7.8-10.44); Carbon Dioxide 24 mmol/L (23-31); Chloride 102 mmol/L (98-107); Globulin 3.7 g/dL (2.4-3.5); Glucose 164 mg/dL (83-110); Magnesium 1.7 mg/dL (1.6-2.6); Potassium 4.2 mmol/L (3.5-5.1); Protein, Total 7.3 g/dL (5.8-8.1)
[2021-07-05 05:44] LABS: Sodium 137 mmol/L (136-145)
[2021-07-05 05:45] LABS: #Basophils 0.1 thou/uL (0.0-0.2); #Eosinphils 0.2 thou/uL (0.0-0.7); #Lymphocytes 1.7 thou/uL (1.20-3.40); #Monocytes 0.7 thou/uL (0.11-0.59); #Neutrophils 6.3 thou/uL (1.40-6.50); %Basophils 0.7 % (0.0-1.0); %Eosinophils 1.7 % (0.0-10.0); %Lymphocytes 19.5 % (21.0-51.0); %Monocytes 7.4 % (0.0-10.0); %Neutrophils 70.6 % (42.0-75.0); Band 2 % (5-11); Hemoglobin 10.2 g/dL (14.0-18.0); Hypochromia SLIGHT = 6-15 cells (100X) (0-5/hpf); Lymphocytes 12 % (21-51); MDiff Complete? YES; Macrocytosis SLIGHT = 6-15 cells (100X) (0-5/hpf); Mean Corpuscular HGB CONC 33.3 g/dL (32.0-36.0); Mean Corpuscular Hemoglobin 33.8 pg (27.0-31.0); Mean Platelet Volume 8.2 fL (7.4-10.4); Monocytes 11 % (0-10); Neutrophil 75 % (42-75); Platelet Count 313 thou/uL (130-400); Platelet Morphology Comment Appears Adequate; RBC Distribution Width 15.9 % (11.5-14.5); Red Blood Cell (RBC) Count 3.01 mill/uL (4.70-6.10); White Blood Cell (WBC) Count 8.9 thou/uL (4.8-10.8)
[2021-07-05] MEDS: glipiZIDE 5 MG TAB PO SCH (06:41)
[2021-07-05] MEDS: Saccharomyces boulardii 250 MG CAP PO SCH (07:40)
[2021-07-05] MEDS: Amlodipine 5 MG TAB PO SCH (07:40)
[2021-07-05] MEDS: Meropenem 1 GM in Sodium Chloride 0.9% 100 ML IVPB SCH ×2 (07:40→21:33)
[2021-07-05] MEDS: Tamsulosin HCl 0.4 MG CAP PO SCH (07:40)
[2021-07-05] MEDS: Finasteride 5 MG TAB PO SCH (07:40)
[2021-07-05] MEDS: Metoprolol Tartrate 50 MG TAB PO SCH ×2 (07:40→21:33)
[2021-07-05] MEDS ORDERED: Furosemide 40 MG/4 ML VIAL SLOW IVP SCH ×2 (09:00→15:15)
[2021-07-05] MEDS: HumaLOG 300 UNITS/3 ML VIAL SC PRN ×2 (12:04→16:44)
[2021-07-05] MEDS ORDERED: ALPRAZolam 0.25 MG TAB PO PRN (15:31)
[2021-07-05] MEDS: Enoxaparin Sodium 40 MG/0.4 ML SYRINGE SC SCH (21:33)
[2021-07-05 22:49] LABS: SARS-CoV-2 PCR by NAA DETECTED (NotDetected)
[2021-07-05] MEDS ORDERED: Dexamethasone 10 MG/ML VIAL SLOW IVP SCH (23:15)
[2021-07-06] MEDS: Furosemide 40 MG/4 ML VIAL SLOW IVP SCH ×2 (05:16→14:35)
[2021-07-06 05:19] LABS: #Basophils 0.1 thou/uL (0.0-0.2); #Lymphocytes 1.4 thou/uL (1.20-3.40); #Monocytes 0.3 thou/uL (0.11-0.59); #Neutrophils 6.6 thou/uL (1.40-6.50); %Basophils 0.9 % (0.0-1.0); %Eosinophils 0.4 % (0.0-10.0); %Lymphocytes 16.6 % (21.0-51.0); %Neutrophils 79.2 % (42.0-75.0); Hemoglobin 9.8 g/dL (14.0-18.0); Mean Corpuscular HGB CONC 33.9 g/dL (32.0-36.0); Mean Corpuscular Hemoglobin 34.2 pg (27.0-31.0); Mean Platelet Volume 8.3 fL (7.4-10.4); Platelet Count 288 thou/uL (130-400); RBC Distribution Width 16.3 % (11.5-14.5); Red Blood Cell (RBC) Count 2.87 mill/uL (4.70-6.10); White Blood Cell (WBC) Count 8.3 thou/uL (4.8-10.8)
[2021-07-06] MEDS: HumaLOG 300 UNITS/3 ML VIAL SC PRN ×4 (05:19→21:23)
[2021-07-06 05:46] LABS: ALT (SGPT) 115 U/L (8-55); AST (SGOT) 70 U/L (5-34); Albumin 3.7 g/dL (3.4-4.8); Alkaline Phosphatase 237 U/L (40-110); Anion Gap 18 mmol/L (10-20); BUN (Urea Nitrogen) 17 mg/dL (8.4-25.7); Bilirubin, Total 5.4 mg/dL (0.2-1.2); CRP (Inflammatory) 5.32 mg/dL (= or < 0.5); Calc. Creatinine Clearance 59 mL/min (70-130); Calcium 9.4 mg/dL (7.8-10.44); Carbon Dioxide 22 mmol/L (23-31); Chloride 100 mmol/L (98-107); Globulin 3.7 g/dL (2.4-3.5); Glucose 224 mg/dL (83-110); Potassium 4.7 mmol/L (3.5-5.1); Protein, Total 7.4 g/dL (5.8-8.1); Sodium 135 mmol/L (136-145)
[2021-07-06] MEDS: Meropenem 1 GM in Sodium Chloride 0.9% 100 ML IVPB SCH ×2 (08:11→21:23)
[2021-07-06] MEDS: Saccharomyces boulardii 250 MG CAP PO SCH (08:12)
[2021-07-06] MEDS: Ascorbic Acid 500 mg Chewable Tablet PO SCH (08:12)
[2021-07-06] MEDS: Zinc Sulfate 220 MG CAP PO SCH (08:12)
[2021-07-06] MEDS: Amlodipine 5 MG TAB PO SCH (08:12)
[2021-07-06] MEDS: Metoprolol Tartrate 50 MG TAB PO SCH ×2 (08:12→21:23)
[2021-07-06] MEDS: Cholecalciferol (Vitamin D3) 400 UNITS TAB PO SCH (08:13)
[2021-07-06] MEDS: Tamsulosin HCl 0.4 MG CAP PO SCH (08:13)
[2021-07-06] MEDS: Finasteride 5 MG TAB PO SCH (08:13)
[2021-07-06] MEDS: glipiZIDE 5 MG TAB PO SCH (08:30)
[2021-07-06] MEDS ORDERED: REMDESIVIR 200 MG in Sodium Chloride 0.9% 250 ML 210 ML IV SCH (09:00)
[2021-07-06] MEDS ORDERED: Dexamethasone 10 MG/ML VIAL SLOW IVP SCH (09:00)
[2021-07-06] MEDS ORDERED: Bisacodyl 5 MG TAB PO PRN (14:11)
[2021-07-06] MEDS ORDERED: Bisacodyl 5 MG TAB PO SCH (14:15)
[2021-07-06] MEDS: Enoxaparin Sodium 40 MG/0.4 ML SYRINGE SC SCH (21:23)
[2021-07-07] MEDS: Furosemide 40 MG/4 ML VIAL SLOW IVP SCH ×2 (05:31→14:00)
[2021-07-07] MEDS: HumaLOG 300 UNITS/3 ML VIAL SC PRN ×2 (05:57→17:50)
[2021-07-07 06:57] LABS: #Lymphocytes 1.7 thou/uL (1.20-3.40); #Monocytes 0.6 thou/uL (0.11-0.59); #Neutrophils 7.4 thou/uL (1.40-6.50); %Eosinophils 0.3 % (0.0-10.0); %Lymphocytes 17.9 % (21.0-51.0); %Monocytes 6.4 % (0.0-10.0); %Neutrophils 75.4 % (42.0-75.0); Hemoglobin 9.9 g/dL (14.0-18.0); Mean Corpuscular Hemoglobin 33.5 pg (27.0-31.0); Mean Platelet Volume 7.7 fL (7.4-10.4); Platelet Count 311 thou/uL (130-400); Red Blood Cell (RBC) Count 2.94 mill/uL (4.70-6.10); White Blood Cell (WBC) Count 9.7 thou/uL (4.8-10.8)
[2021-07-07 07:19] LABS: ALT (SGPT) 92 U/L (8-55); AST (SGOT) 50 U/L (5-34); Albumin 3.4 g/dL (3.4-4.8); Alkaline Phosphatase 211 U/L (40-110); Anion Gap 16 mmol/L (10-20); BUN (Urea Nitrogen) 27 mg/dL (8.4-25.7); Bilirubin, Total 3.9 mg/dL (0.2-1.2); CRP (Inflammatory) 4.55 mg/dL (= or < 0.5); Calc. Creatinine Clearance 57 mL/min (70-130); Calcium 9.2 mg/dL (7.8-10.44); Carbon Dioxide 26 mmol/L (23-31); Chloride 98 mmol/L (98-107); Globulin 3.5 g/dL (2.4-3.5); Glucose 248 mg/dL (83-110); Potassium 3.5 mmol/L (3.5-5.1); Protein, Total 6.9 g/dL (5.8-8.1); Sodium 136 mmol/L (136-145)
[2021-07-07] MEDS: Meropenem 1 GM in Sodium Chloride 0.9% 100 ML IVPB SCH ×2 (09:31→21:47)
[2021-07-07] MEDS: Tamsulosin HCl 0.4 MG CAP PO SCH (09:32)
[2021-07-07] MEDS: Finasteride 5 MG TAB PO SCH (09:32)
[2021-07-07] MEDS: Cholecalciferol (Vitamin D3) 400 UNITS TAB PO SCH (09:33)
[2021-07-07] MEDS: Saccharomyces boulardii 250 MG CAP PO SCH (09:33)
[2021-07-07] MEDS: glipiZIDE 5 MG TAB PO SCH (09:33)
[2021-07-07] MEDS: Zinc Sulfate 220 MG CAP PO SCH (09:33)
[2021-07-07] MEDS: Metoprolol Tartrate 50 MG TAB PO SCH ×2 (09:33→20:45)
[2021-07-07] MEDS: Ascorbic Acid 500 mg Chewable Tablet PO SCH (09:33)
[2021-07-07] MEDS: Amlodipine 5 MG TAB PO SCH (09:33)
[2021-07-07] MEDS: REMDESIVIR 100 MG in Sodium Chloride 0.9% 250 ML 230 ML IV SCH (10:10)
[2021-07-07 10:21] VITALS: BMI 35.4
[2021-07-07] MEDS: Enoxaparin Sodium 40 MG/0.4 ML SYRINGE SC SCH (20:45)
[2021-07-08] MEDS: Furosemide 40 MG/4 ML VIAL SLOW IVP SCH ×2 (06:12→14:05)
[2021-07-08 07:05] LABS: ALT (SGPT) 89 U/L (8-55); AST (SGOT) 61 U/L (5-34); Albumin 3.3 g/dL (3.4-4.8); Alkaline Phosphatase 207 U/L (40-110); Anion Gap 15 mmol/L (10-20); BUN (Urea Nitrogen) 27 mg/dL (8.4-25.7); Bilirubin, Total 4.3 mg/dL (0.2-1.2); CRP (Inflammatory) 3.29 mg/dL (= or < 0.5); Calc. Creatinine Clearance 56 mL/min (70-130); Calcium 9.2 mg/dL (7.8-10.44); Carbon Dioxide 30 mmol/L (23-31); Chloride 98 mmol/L (98-107); Globulin 3.7 g/dL (2.4-3.5); Glucose 182 mg/dL (83-110); Potassium 3.6 mmol/L (3.5-5.1); Sodium 139 mmol/L (136-145)
[2021-07-08] MEDS: Tamsulosin HCl 0.4 MG CAP PO SCH (08:45)
[2021-07-08] MEDS: Finasteride 5 MG TAB PO SCH (08:45)
[2021-07-08] MEDS: glipiZIDE 5 MG TAB PO SCH (08:46)
[2021-07-08] MEDS: Metoprolol Tartrate 50 MG TAB PO SCH ×2 (08:46→21:10)
[2021-07-08] MEDS: Cholecalciferol (Vitamin D3) 400 UNITS TAB PO SCH (08:46)
[2021-07-08] MEDS: Ascorbic Acid 500 mg Chewable Tablet PO SCH (08:46)
[2021-07-08] MEDS: Zinc Sulfate 220 MG CAP PO SCH (08:46)
[2021-07-08] MEDS: Amlodipine 5 MG TAB PO SCH (08:46)
[2021-07-08] MEDS: Saccharomyces boulardii 250 MG CAP PO SCH (08:46)
[2021-07-08] MEDS: Meropenem 1 GM in Sodium Chloride 0.9% 100 ML IVPB SCH (08:58)
[2021-07-08 12:05] LABS: SARS-CoV-2 PCR by NAA DETECTED (NotDetected)
[2021-07-08] MEDS: REMDESIVIR 100 MG in Sodium Chloride 0.9% 250 ML 230 ML IV SCH (12:22)
[2021-07-08] MEDS: HumaLOG 300 UNITS/3 ML VIAL SC PRN (17:00)
[2021-07-08] MEDS ORDERED: HumaLOG 300 UNITS/3 ML VIAL SC PRN (21:00)
[2021-07-08] MEDS: Enoxaparin Sodium 40 MG/0.4 ML SYRINGE SC SCH (21:10)
[2021-07-09] MEDS: Furosemide 40 MG/4 ML VIAL SLOW IVP SCH (06:29)
[2021-07-09] MEDS: Ascorbic Acid 500 mg Chewable Tablet PO SCH (08:46)
[2021-07-09] MEDS: glipiZIDE 5 MG TAB PO SCH (08:46)
[2021-07-09] MEDS: Amlodipine 5 MG TAB PO SCH (08:46)
[2021-07-09] MEDS: Zinc Sulfate 220 MG CAP PO SCH (08:46)
[2021-07-09] MEDS: Cholecalciferol (Vitamin D3) 400 UNITS TAB PO SCH (08:46)
[2021-07-09] MEDS: Saccharomyces boulardii 250 MG CAP PO SCH (08:47)
[2021-07-09] MEDS: Metoprolol Tartrate 50 MG TAB PO SCH (08:47)
[2021-07-09] MEDS: Finasteride 5 MG TAB PO SCH (08:47)
[2021-07-09] MEDS: Tamsulosin HCl 0.4 MG CAP PO SCH (08:47)
[2021-07-09 10:07] LABS: #Basophils 0.1 thou/uL (0.0-0.2); #Eosinphils 0.2 thou/uL (0.0-0.7); #Lymphocytes 1.5 thou/uL (1.20-3.40); #Monocytes 0.5 thou/uL (0.11-0.59); #Neutrophils 4.1 thou/uL (1.40-6.50); %Basophils 0.8 % (0.0-1.0); %Eosinophils 3.2 % (0.0-10.0); %Lymphocytes 23.8 % (21.0-51.0); %Monocytes 8.1 % (0.0-10.0); %Neutrophils 64.1 % (42.0-75.0); Hemoglobin 11.5 g/dL (14.0-18.0); Mean Corpuscular HGB CONC 33.9 g/dL (32.0-36.0); Mean Corpuscular Hemoglobin 34.3 pg (27.0-31.0); Mean Platelet Volume 8.5 fL (7.4-10.4); Platelet Count 273 thou/uL (130-400); RBC Distribution Width 15.7 % (11.5-14.5); Red Blood Cell (RBC) Count 3.35 mill/uL (4.70-6.10); White Blood Cell (WBC) Count 6.5 thou/uL (4.8-10.8)
[2021-07-09 10:29] LABS: ALT (SGPT) 82 U/L (8-55); AST (SGOT) 68 U/L (5-34); Albumin 3.5 g/dL (3.4-4.8); Alkaline Phosphatase 222 U/L (40-110); Anion Gap 16 mmol/L (10-20); BUN (Urea Nitrogen) 25 mg/dL (8.4-25.7); Bilirubin, Total 5.4 mg/dL (0.2-1.2); Calc. Creatinine Clearance 55 mL/min (70-130); Calcium 9.1 mg/dL (7.8-10.44); Carbon Dioxide 34 mmol/L (23-31); Chloride 91 mmol/L (98-107); Globulin 4.1 g/dL (2.4-3.5); Glucose 269 mg/dL (83-110); Potassium 3.5 mmol/L (3.5-5.1); Protein, Total 7.6 g/dL (5.8-8.1); Sodium 137 mmol/L (136-145)
[2021-07-09] MEDS ORDERED: Potassium Chloride 20 MEQ TAB PO SCH (11:30)
[2021-07-09 13:40] VITALS: BP 130/80; TEMP 97.6
== END 2021-07-09 14:45 | disposition home or self-care (01) | DRG 871 ==
LOC: ERS 19:36 → 2NO 21:07 → SJJU 07-02 16:14 → T4-A 07-06 12:14
PROVIDERS: ADMIT Internal Medicine; ATTEND Internal Medicine
PROC: 0FC98ZZ Extirpation of Matter from Common Bile Duct, Via Natural or Artificial Opening Endoscopic (ICD-10-PCS; principal; 2021-07-01)
PROC: BF101ZZ Fluoroscopy of Bile Ducts using Low Osmolar Contrast (ICD-10-PCS; 2021-07-01)
PROC: XW033E5 Introduction of Remdesivir Anti-infective into Peripheral Vein, Percutaneous Approach, New Technology Group 5 (ICD-10-PCS; 2021-07-06)
PROC: 8E0ZXY6 Isolation (ICD-10-PCS; 2021-07-06)
DX: A41.51 Sepsis due to Escherichia coli [E. coli] (principal); U07.1 COVID-19; I21.A1 Myocardial infarction type 2; N17.9 Acute kidney failure, unspecified; K80.30 Calculus of bile duct with cholangitis, unspecified, without obstruction; I13.0 Hypertensive heart and chronic kidney disease with heart failure and stage 1 through stage 4 chronic kidney disease, or unspecified chronic kidney disease; E87.1 Hypo-osmolality and hyponatremia; I50.42 Chronic combined systolic (congestive) and diastolic (congestive) heart failure; R65.20 Severe sepsis without septic shock; Z96.643 Presence of artificial hip joint, bilateral; Z96.619 Presence of unspecified artificial shoulder joint; M19.90 Unspecified osteoarthritis, unspecified site; M06.9 Rheumatoid arthritis, unspecified; I25.10 Atherosclerotic heart disease of native coronary artery without angina pectoris; F17.210 Nicotine dependence, cigarettes, uncomplicated; I25.5 Ischemic cardiomyopathy; N18.30 Chronic kidney disease, stage 3 unspecified; K52.9 Noninfective gastroenteritis and colitis, unspecified; F40.240 Claustrophobia; I08.3 Combined rheumatic disorders of mitral, aortic and tricuspid valves; Z88.1 Allergy status to other antibiotic agents; E11.22 Type 2 diabetes mellitus with diabetic chronic kidney disease; I44.7 Left bundle-branch block, unspecified; E11.65 Type 2 diabetes mellitus with hyperglycemia; D63.1 Anemia in chronic kidney disease; M48.061 Spinal stenosis, lumbar region without neurogenic claudication; Z95.1 Presence of aortocoronary bypass graft; Z90.49 Acquired absence of other specified parts of digestive tract; Z98.890 Other specified postprocedural states; Z79.899 Other long term (current) drug therapy; Z79.84 Long term (current) use of oral hypoglycemic drugs
CPT/HCPCS: 36415; 36416; 71045; 71046; 71275; 74174; 74183; 74330; 76705; 80048; 80053; 80307; 81001; 82553; 82728; 83605; 83690; 83735; 83880; 84100; 84484; 85025; 85379; 85610; 85730; 86140; 87040; 93005; 93306; 96374; 96375; J0248; J0692; J1100; J1610; J1644; J1650; J1815; J1940; J2185; J2270; J2405; J2704; J3010; J3490; J7050; P9045; P9047; Q9961-U8; U0003; U0005